=== PATIENT | male | born 1995 | race Two or more races ===

== ENCOUNTER 2020-12-31 04:49 | Emergency (ER) | payer OTHER ==
[~2020-12-31] VITALS: Ht 165.1 cm; Wt 90.4 kg
[2020-12-31] MEDS ORDERED: HYDROCODON-ACE1 EA10 PO (05:07)
== END 2020-12-31 05:34 | disposition home or self-care (01) ==
LOC: ED 04:49
DX: T23.201A Burn of second degree of right hand, unspecified site, initial encounter (principal); T23.271A Burn of second degree of right wrist, initial encounter; T31.0 Burns involving less than 10% of body surface; X10.2XXA Contact with fats and cooking oils, initial encounter; Z23 Encounter for immunization
CPT/HCPCS: 90471; 90715; 99283-25

== ENCOUNTER 2021-01-02 12:51 | Emergency (ER) | payer OTHER ==
[~2021-01-02] VITALS: Ht 165.1 cm; Wt 88.5 kg
[~2021-01-02 12:51] MED LIST: HYDROCODON-ACE1 EA10 PO
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
== END 2021-01-02 15:28 | disposition home or self-care (01) ==
LOC: ED 12:51
DX: T23.201A Burn of second degree of right hand, unspecified site, initial encounter (principal); T31.0 Burns involving less than 10% of body surface; X10.2XXA Contact with fats and cooking oils, initial encounter; Z99.0 Dependence on aspirator
CPT/HCPCS: 99283